=== PATIENT | female | born 1990 | race Caucasian/White ===

== ENCOUNTER 2020-06-18 11:59 | Outpatient (CLI) | payer OTHER, SELFPAY ==
--- NOTE | ~2020-06-18 | CT_ITS ---
EXAMINATION: CT abdomen pelvis wo/w con DATE: 06/18/2020 13:15 INDICATION: Right flank pain for 2 days. Urinary urgency for 5 days. TECHNIQUE: Computed tomography (CT) of the abdomen and pelvis was performed without and subsequently with 100 cc Omnipaque 350 intravenous contrast. Automated exposure control and iterative reconstructi on technique were employed. Exam dose: 1175.18 mGy-cm total exam DLP. COMPARISON: 01/18/2005 CT abdomen FINDINGS: There is minimal dependent atelectasis of the lower lobes. Normal heart size. No pericardial or pleural effusion. Small sliding hiatal hernia. Approximately 10 mm hepatic cyst; otherwise no hepatic, splenic, pancreatic, adrenal space-occupying mass lesion. 7.5 mm right renal cyst. No other renal mass lesion is evident. There is a 5 mm distal right ureteral calculus with mild right hydroureteronephrosis. Normal caliber of the abdominal aorta. No intraperitoneal or retroperitoneal or pelvic mass lesion or adenopathy or ascites. The urinary bladder, uterus and adnexal areas are unremarkable other than IUD within the uterus and s ome small follicular cysts of the ovaries. No pelvic free fluid collection is detected. Normal appendix. No bowel obstruction, bowel wall thickening, pneumatosis or intraperitoneal free air is detected. Included skeletal structures are unremarkable. IMPRESSION: 5 mm distal right ureteral calculus with mild right hydroureteronephrosis 7.5 mm right renal 10 mm hepatic cyst Small sliding hiatal hernia IUD within uterus Reviewed, dictated and finalized at [facility]. Reviewed, dictated and finalized at [facility]. IMPRESSION: 5 mm distal right ureteral calculus with mild right hydroureterone phrosis 7.5 mm right renal 10 mm hepatic cyst Small sliding hiatal hernia IUD within uterus
== END 2020-06-18 12:00 | disposition home or self-care (01) ==
PROVIDERS: PCP Family Medicine; Visit Provider Physician Assistant Medical
DX: R10.9 Unspecified abdominal pain (principal); R31.9 Hematuria, unspecified; N20.0 Calculus of kidney; N13.30 Unspecified hydronephrosis; K76.89 Other specified diseases of liver; Z97.5 Presence of (intrauterine) contraceptive device
CPT/HCPCS: 74178; Q9967

== ENCOUNTER → 2020-09-01 12:48 | Outpatient (CLI) | payer OTHER, SELFPAY ==
--- NOTE | ~2020-09-01 | CT_ITS ---
EXAMINATION: CTA chest PE protocol EXAM DATE: 09/01/2020 13:07 INDICATION: R06.00 - Dyspnea, unspecified. Left-sided chest pain under breast. TECHNIQUE: Spiral CTA of the chest (pulmonary arteries) was performed with 100 cc Omnipaque 350 intr avenous contrast injection. Images were acquired during the pulmonary arterial phase. Coronal maxi mum intensity projection 3D-reconstructions were created by the technologist on dedicated workstation . Axial, coronal and sagittal reformatted images were reviewed. The dose-length product (DLP) for t his examination was 428.98 mGy-cm. The exposure was tailored according to patient size (auto mA exp osure control), and iterative reconstruction (ASIR) was used as additional dose reduction technique. There is no prior study for comparison. FINDINGS: Pulmonary arteries are well opacified and without intraluminal filling defects. No thora cic aortic dissection. The lungs are clear. There are no pleural or pericardial effusions. Trach eobronchial tree is patent. There is no mediastinal, hilar or axillary lymphadenopathy. There is no pneumothorax. Heart normal in size. No evidence of coronary arterial calcification. Upper abd omen is unremarkable. The bones are unremarkable. IMPRESSION: 1. Unremarkable CT pulmonary exam. Reviewed, dictated and finalized at location [facility]. 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
== END ==
PROVIDERS: PCP Family Medicine; Visit Provider Nurse Practitioner Family
DX: R06.00 Dyspnea, unspecified (principal)
CPT/HCPCS: 71275; Q9967

== ENCOUNTER 2020-09-14 17:04 | Outpatient (CLI) | payer OTHER, SELFPAY ==
--- NOTE | ~2020-09-14 | US_ITS ---
EXAMINATION: US soft tissue abdomen EXAM DATE: 09/14/2020 17:53 INDICATION: R10.12 - Left upper quadrant pain. Swelling, left rib pain. TECHNIQUE: Multiple grayscale and Doppler images of the symptomatic left chest, rib area were obtaine d (by a technologist who performed the scan) and subsequently reviewed. Correlation is made to abdome n CT 06/18/2020. FINDINGS: The subcutaneous soft tissue the patient's left chest area of clinical concern is unremarkable as are the imaged intercostal muscles. IMPRESSION: 1. Unremarkable ultrasound exam. Reviewed, dictated and finalized at location [facility]. 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
--- NOTE | ~2020-09-14 | XR_ITS ---
EXAMINATION: XR ribs BI 3V w CXR 2V EXAM DATE: 09/14/2020 17:39 INDICATION: R06.00 - Dyspnea, unspecified. Pain Lt Ant/Lower Ribs. TECHNIQUE: Frontal projection of the upper left ribs, frontal projection of the lower left ribs, obli que projection of the left ribs. Frontal projection of the upper right ribs, frontal projection of t he lower right ribs, oblique projection of the right ribs, frontal and lateral chest x-ray(s) for int erpretation. Comparison is made to prior examination from 06/18/2007. FINDINGS: There are no displaced acute rib fractures identified. Cardiomediastinal silhouette is no rmal. No confluent consolidation, pneumothorax or pleural effusion suspected. There are no osteobla stic or osteolytic lesions identified. IMPRESSION: Unremarkable rib, chest x-ray exam. Reviewed, dictated and finalized at location [facility]. 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
== END 2020-09-14 17:05 | disposition home or self-care (01) ==
PROVIDERS: PCP Family Medicine; Visit Provider Nurse Practitioner Family
DX: R06.00 Dyspnea, unspecified (principal); R07.81 Pleurodynia; R10.12 Left upper quadrant pain
CPT/HCPCS: 71046; 71110; 76705

== ENCOUNTER → 2021-07-04 11:51 | Outpatient (CLI) | payer OTHER, SELFPAY ==
--- NOTE | ~2021-07-04 | XR_ITS ---
EXAMINATION: XR chest 2V DATE: 07/04/2021 12:18 INDICATION: Thoracic outlet syndrome TECHNIQUE: PA and lateral views of the chest are obtained. COMPARISON: 09/14/2020 FINDINGS: The lungs are free of acute opacities. There is no pleural effusion or pneumothorax. The ca rdiomediastinal silhouette is normal. The visualized bones and soft tissues are unremarkable. IMPRESSION: 1. No acute cardiopulmonary abnormality. Reviewed, dictated and finalized at location [facility].
== END ==
DX: Z01.818 Encounter for other preprocedural examination (principal)
CPT/HCPCS: 71046

== ENCOUNTER 2022-06-12 07:39 | Outpatient (CLI) | payer BC, SELFPAY ==
--- NOTE | ~2022-06-12 | MR_ITS ---
EXAMINATION: MR cervical spine wo con DATE: 06/12/2022 08:28 INDICATION: Neck pain. TECHNIQUE: Magnetic resonance imaging (MRI) of the cervical spine was performed without intravenous c ontrast. Sequences included sagittal T2-weighted FSE, sagittal T2-weighted FS FSE, sagittal T1-weight ed FSE, axial MERGE, and axial T2-weighted FSE. COMPARISON: None FINDINGS: There is mild kyphosis of cervical spine. Vertebral body heights and intervertebral disc he ights are normal. The spinal cord signal intensity is normal. The following disc levels are specifica lly discussed: C2-C3: The disc does not extend beyond the endplate margin. There is no uncovertebral joint osteoarth ritis. There is mild left facet joint osteoarthritis. There is no neural foraminal stenosis. There is no central canal stenosis. C3-C4: The disc does not extend beyond the endplate margin. There is mild bilateral uncovertebral [place] osteoarthritis. There is mild left facet joint osteoarthritis. There is mild bilateral neural fora destin stenosis. There is no central canal stenosis. C4-C5: The disc does not extend beyond the endplate margin. There is mild left uncovertebral joint os teoarthritis. There is no facet joint osteoarthritis. There is mild left neural foraminal stenosis. T here is no central canal stenosis. C5-C6: The disc does not extend beyond the endplate margin. There is no uncovertebral joint osteoarth ritis. There is mild left facet joint osteoarthritis. There is no neural foraminal stenosis. There is no central canal stenosis. C6-C7: The disc is bulging. There is no uncovertebral joint osteoarthritis. There is no facet joint o steoarthritis. There is mild right neural foraminal stenosis. There is mild central canal stenosis. C7-T1: The disc does not extend beyond the endplate margin. There is no uncovertebral joint osteoarth ritis. There is severe right and moderate left facet joint osteoarthritis. There is mild right neural foraminal stenosis. There is no central canal stenosis. IMPRESSION: 1. Mild cervical spondylosis. Reviewed, dictated and finalized at location B.
== END 2022-06-12 07:40 | disposition home or self-care (01) ==
PROVIDERS: PCP Family Medicine; Visit Provider Nurse Practitioner Family
DX: R20.2 Paresthesia of skin (principal); M47.892 Other spondylosis, cervical region
CPT/HCPCS: 72141